=== PATIENT | female | born 1995 | race Caucasian/White ===

== ENCOUNTER 2016-09-15 12:02 | Emergency (ER) | payer SELFPAY ==
[~2016-09-15] VITALS: Ht 160 cm; Wt 49.0 kg
[~2016-09-15 12:02] MED LIST: MACR100C PO
[2016-09-15 12:11] VITALS: BP 132/97; PULSE 103; RESP 18; TEMP 99.7; O2SAT 98
--- NOTE | 2016-09-15 12:34 | PD ---
HPI Chief Complaint: ENT Complaint Time Seen by Provider: 12:28 Travel History International Travel<30 days: No Contact w/Intl Traveler<30days: No Traveled to known affect area: No History of Present Illness HPI 21-year-old female presents to the emergency room for evaluation of nonproductive cough, sore throat for the past day. Denies any other complaints. She has not taken anything for her symptoms. She is around multiple sick people. Denies possibility of . No chronic medical conditions or daily medications. Patient smokes a pack of cigarettes per day. PFSH Past Medical History Diminished Hearing: No Immunizations Current: Yes Thyroid Disease: Yes ?: Not Social History Alcohol Use: Yes (3 18CASES A WEEK) Tobacco Use: Yes (1PPD) Substance Use: Yes (MARIJUANA) Allergies-Medications (Allergen,Severity, Reaction): Coded Allergies: Advair (Verified Allergy, Severe, Hypertension, 09/15/16) Erythromycin (Verified Adverse Reaction, Intermediate, UNKNOWN, 09/15/16) Reported Meds & Prescriptions Reported Meds & Active Scripts Active No Active Prescriptions or Reported Medications Review of Systems Except as stated in HPI: all other systems reviewed are Neg Physical Exam Narrative GENERAL: Well-nourished, well-developed female in no acute distress. Afebrile. Ambulatory. SKIN: Warm and dry. HEAD: Normocephalic. EYES: No scleral icterus. No injection or drainage. NECK: Supple, trachea midline. No JVD or lymphadenopathy. ENT: Mucosa pink and moist. Mild erythema without edema or exudates. No uvular edema. No uvular, palatal, or tonsillar deviation. Airway patent. EARS: Bilateral pinnae and external canals appear within normal limits. Bilateral tympanic membranes without erythema, dullness or perforation. CARDIOVASCULAR: Regular rate and rhythm without murmurs, gallops, or rubs. RESPIRATORY: Breath sounds equal bilaterally. No accessory muscle use. No crackles, rales, wheezes, or rhonchi. Data Data Last Documented VS Vital Signs Date Time Temp Pulse Resp B/P Pulse Ox O2 Delivery O2 Flow Rate FiO2 09/15/16 12:11 99.7 103 18 132/97 98 Orders Group A Rapid Strep Screen (09/15/16 12:20) Strep Culture (Group A) (09/15/16 12:15) MDM Medical Decision Making Medical Screen Exam Complete: Yes Emergency Medical Condition: Yes Medical Record Reviewed: Yes Differential Diagnosis URI versus sinusitis versus bronchitis versus streptococcal pharyngitis Narrative Course 21-year-old female presents to the emergency room for evaluation of cough and cold symptoms for the past day. Patient is afebrile and well-appearing in the emergency room. Resting comfortably in bed. Vital signs stable. Physical exam is reassuring. Lung sounds clear and equal bilaterally. Mild erythema of the pharynx without exudate or edema. Rapid strep is negative. Patient discharged with instructions to take [id number] medications and follow up with her primary care physician or return for worsening symptoms. She understands and agrees to plan. Diagnosis Primary Impression: Upper respiratory infection Qualified Code: J00 - Acute nasopharyngitis Referrals: Primary Care Physician Patient Instructions: General Instructions, Upper Respiratory Infection (ED) Additional Instructions: Rest and drink plenty of fluids. [id number] cough and cold medications as directed. Take ibuprofen with food as directed, as needed for pain. Follow-up with a primary care physician. Return to the emergency room for worsening symptoms. Scripts No Active Prescriptions or Reported Meds Disposition: 01 DISCHARGE HOME Condition: Stable Emma Riddle Sep 15, 2016 12:34
== END 2016-09-15 13:00 | disposition home or self-care (01) ==
LOC: PHEFT 12:02
DX: J06.9 Acute upper respiratory infection, unspecified (principal); B95.0 Streptococcus, group A, as the cause of diseases classified elsewhere; J02.9 Acute pharyngitis, unspecified; E07.9 Disorder of thyroid, unspecified; F17.210 Nicotine dependence, cigarettes, uncomplicated; F10.10 Alcohol abuse, uncomplicated; F12.90 Cannabis use, unspecified, uncomplicated
CPT/HCPCS: 87081; 87880; 99283

== ENCOUNTER 2017-04-04 19:54 | Emergency (ER) | payer OTHER ==
[~2017-04-04] VITALS: Ht 162.6 cm; Wt 50.0 kg
[2017-04-04 20:06] VITALS: BP 112/73; PULSE 93; RESP 16; TEMP 98.5; O2SAT 97
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
[2017-04-04 20:54] LABS: AUTOMATED NEUTROPHIL # 6.7 TH/MM3 (1.8-7.7); BASOPHIL % 0.3 % (0.0-2.0); EOSINOPHIL % 0.1 % (0.0-4.0); HEMATOCRIT 47.5 % (35.0-46.0); HEMO FLAGS DIFF FINAL; LYMPH % 16.1 % (9.0-44.0); LYMPHOCYTE # 1.4 TH/MM3 (1.0-4.8); MEAN CELL VOLUME 97.7 FL (80.0-100.0); MEAN CORPUSCULAR HEMOGLOBIN 32.8 PG (27.0-34.0); MEAN CORPUSCULAR HGB CONC 33.6 % (32.0-36.0); MONO % 5.5 % (0.0-8.0); PLATELET COUNT 307 TH/MM3 (150-450); RED BLOOD COUNT 4.86 MIL/MM3 (4.00-5.30); WHITE BLOOD COUNT 8.6 TH/MM3 (4.0-11.0)
[2017-04-04 21:08] LABS: ANION GAP 7 MEQ/L (5-15); AST (GOT) 13 U/L (15-37); BICARBONATE 28.2 MEQ/L (21.0-32.0); BLOOD UREA NITROGEN 7 MG/DL (7-18); CHLORIDE 101 MEQ/L (98-107); GLOMERULAR FILTRATION RATE 67 ML/MIN (>89); POTASSIUM 4.1 MEQ/L (3.5-5.1); SODIUM (NA) 136 MEQ/L (136-145)
[2017-04-04 21:09] LABS: ALT (GPT) 15 U/L (10-53)
[2017-04-04 21:10] LABS: ALCOHOL 72 MG/DL (0-5)
[2017-04-04 21:11] LABS: ALKALINE PHOSPHATASE 102 U/L (45-117); TOTAL BILIRUBIN ADULT 0.4 MG/DL (0.2-1.0)
[2017-04-04 21:28] LABS: ACETAMINOPHEN LESS THAN 2.0 MCG/ML (10.0-30.0)
[2017-04-05 06:09] VITALS: BP 93/53; PULSE 84; RESP 18; TEMP 98.1; O2SAT 98
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
== END 2017-04-05 11:37 | disposition home or self-care (01) ==
LOC: NEDAMB 19:54 → NEPD 04-05 11:37
DX: F43.25 Adjustment disorder with mixed disturbance of emotions and conduct (principal); F10.10 Alcohol abuse, uncomplicated; R45.851 Suicidal ideations; E07.9 Disorder of thyroid, unspecified; F17.200 Nicotine dependence, unspecified, uncomplicated; Z79.899 Other long term (current) drug therapy
CPT/HCPCS: 80053; 80307; 84703; 85025; 99283

== ENCOUNTER 2018-01-09 12:13 | Emergency (ER) | payer SELFPAY ==
[~2018-01-09] VITALS: Ht 160 cm; Wt 45.2 kg
[2018-01-09 12:15] VITALS: BP 128/81; PULSE 91; RESP 18; TEMP 98; O2SAT 100
[2018-01-09] MEDS ORDERED: BENZ1CAP51 PO ×3 (12:26→12:34)
--- NOTE | 2018-01-09 12:27 | PD ---
HPI Chief Complaint: Cold / Flu Symptoms Time Seen by Provider: 12:19 Travel History International Travel<30 days: No Contact w/Intl Traveler<30days: No Traveled to known affect area: No History of Present Illness HPI 22-year-old female presents to the emergency department for evaluation of cough , sore throat, hoarse voice for 2 days. She has no chronic medical problems and takes no prescribed medications. She denies . No fevers or chills. No abdominal pain. No nausea, vomiting, diarrhea. No other symptoms or complaints. Mild severity. PFSH Past Medical History Diminished Hearing: No Immunizations Current: Yes Thyroid Disease: Yes ?: Not LMP: 01/07/18 Social History Alcohol Use: Yes (3 18CASES A WEEK) Tobacco Use: Yes (1PPD) Substance Use: No Allergies-Medications (Allergen,Severity, Reaction): Coded Allergies: fluticasone (Unverified Allergy, Severe, Hypertension, 01/09/18) fluticasone furoate (Unverified Allergy, Severe, Hypertension, 01/09/18) salmeterol (Unverified Allergy, Severe, Hypertension, 01/09/18) erythromycin base (Unverified Adverse Reaction, Intermediate, UNKNOWN, ) Reported Meds & Prescriptions Reported Meds & Active Scripts Active Benzonatate 200 Mg Cap 200 Mg PO TID PRN Review of Systems Except as stated in HPI: all other systems reviewed are Neg Physical Exam Narrative GENERAL: Well-nourished, well-developed female patient, ambulatory. Afebrile. SKIN: Focused skin assessment warm/dry. HEAD: Normocephalic. ENT: Mucosa pink and moist. No erythema or exudates. No uvular edema. No uvular , palatal, or tonsillar deviation. Airway patent. Nasal turbinates appear normal without nasal blood, purulent drainage or septal hematoma. Bilateral tympanic membranes clear without erythema or perforation. EYES: No scleral icterus. No injection or drainage. NECK: Supple, trachea midline. No JVD or lymphadenopathy. CARDIOVASCULAR: Regular rate and rhythm without murmurs, gallops, or rubs. RESPIRATORY: Breath sounds equal bilaterally. No accessory muscle use. Lung sounds are clear to auscultation. GASTROINTESTINAL: Abdomen soft, non-tender, nondistended. MUSCULOSKELETAL: No cyanosis, or edema. BACK: Nontender without obvious deformity. No CVA tenderness. Data Data Last Documented VS Vital Signs Date Time Temp Pulse Resp B/P (MAP) Pulse Ox O2 Delivery O2 Flow Rate FiO2 01/09/18 12:15 98.0 91 18 128/81 (97) 100 Orders Orders Ed Discharge Order (01/09/18 12:28) MDM Medical Decision Making Medical Screen Exam Complete: Yes Emergency Medical Condition: Yes Medical Record Reviewed: Yes Differential Diagnosis Viral URI versus bronchitis versus sinusitis versus pneumonia Narrative Course 22-year-old female presents to the emergency department for evaluation of cold symptoms for 2 days. She appears well on exam. Vital signs are stable. Symptoms and physical are consistent with a viral upper respiratory infection. Patient will be discharged with a prescription for benzonatate capsules. She is requesting a work note. She will also be given information on the [facility] clinic. The patient was discharged in stable condition with instructions, including return instructions and follow up instructions. Diagnosis Primary Impression: Upper respiratory infection Qualified Codes: J06.9 - Acute upper respiratory infection, unspecified Referrals: [facility] call for appointment Patient Instructions: General Instructions, Upper Respiratory Infection (ED) Departure Forms: Tests/Procedures, Work Release Enter return to work date: January 11, 2018 Additional Instructions: Take benzonatate capsules as directed as needed for cough. Warm salt water gargles for sore throat. [id number] Tylenol or ibuprofen as needed. Drink plenty of fluids. Follow-up with a primary care physician. Return to the emergency department for any acute worsening of symptoms. Med/Other Pt SpecificInfo: Prescription(s) given Scripts Benzonatate (Benzonatate) 200 Mg Cap 200 MG PO TID Y for COUGH, #21 CAP 0 Refills Prov: TejaAndreia 01/09/18 Disposition: 01 DISCHARGE HOME Condition: Stable Andreia Lezama January 09, 2018 12:27
== END 2018-01-09 12:45 | disposition home or self-care (01) ==
LOC: NEPK 12:13
DX: J06.9 Acute upper respiratory infection, unspecified (principal); E07.9 Disorder of thyroid, unspecified; F17.200 Nicotine dependence, unspecified, uncomplicated; Z88.8 Allergy status to other drugs, medicaments and biological substances; Z88.1 Allergy status to other antibiotic agents
CPT/HCPCS: 99283